=== PATIENT | female | born 1985 | race Caucasian/White ===

== ENCOUNTER 2020-03-22 10:46 | Inpatient (IN) | payer BC ==
[~2020-03-22] VITALS: Ht 175.3 cm; Wt 97.9 kg
[2020-03-22 11:25] VITALS: BP 132/85; PULSE 88
[2020-03-22 11:26] LABS: HEMOGLOBIN 15.6 g/dl (12.5-16.0); MEAN CELL VOLUME 88 fl (80.0-100.0); MEAN CORPUSCULAR HEMOGLOBIN 29 pg (27.0-31.0); MEAN CORPUSCULAR HGB CONC 33 g/dl (33.0-37.0); MEAN PLATELET VOLUME 8.7 fl (7.4-10.4); PLATELET COUNT 395 K/mm3 (130-400); RED BLOOD COUNT 5.37 M/mm3 (4.10-5.30); REDCELL DISTRIBUTION WIDTH-CV 13.4 % (11.5-14.5)
[2020-03-22 11:35] LABS: ALBUMIN 4.3 gm/dL (3.5-5.0); BILIRUBIN,TOTAL 0.8 mg/dL (0.0-1.0); C-REACTIVE PROTEIN 3.3 mg/dL (0.0-0.9); CALCIUM 8.7 mg/dL (8.4-10.2); CREATININE, serum 0.67 (0.52-1.25); POTASSIUM 3.6 mmol/L (3.4-5.0); TOTAL PROTEIN 8.2 gm/dL (6.4-8.2)
[2020-03-22 11:46] LABS: BAND 17 % (0-10); EOSINOPHIL 1 % (0-4); LYMPHOCYTE 7 % (20.0-51.0); NEUTROPHILS 65 % (42.0-75.2); PLATELET ESTIMATE NORMAL (NORMAL)
[2020-03-22 12:59] LABS: COLLECTION METHOD CLEAN CATCH
[2020-03-22 13:09] LABS: MUCOUS Present /lpf; PH 6 (5-8); SQUAMOUS EPITHELIAL 0-2 /hpf; URINE APPEARANCE Clear; URINE BACTERIA None Seen /hpf; URINE BILIRUBIN Negative (NEGATIVE); URINE BLOOD 1+ (NEGATIVE); URINE COLOR Yellow; URINE GLUCOSE Negative (NEGATIVE); URINE KETONE 1+ (NEGATIVE); URINE LEUKOCYTE ESTERASE Negative (NEGATIVE); URINE NITRATE Negative (NEGATIVE); URINE PROTEIN(semi-quant) Negative (NEGATIVE); URINE RBC 0-2 /hpf; URINE UROBILINOGEN Negative (NEGATIVE)
[2020-03-22 16:01] LABS: CLOSTRIDIUM DIFF A/B NEG; CLOSTRIDIUM DIFF A/B INTERP No C.diff present
[2020-03-22 16:31] VITALS: BP 140/83; PULSE 88; TEMP 98.9
[2020-03-22 16:33] VITALS: BP 141/81; PULSE 87; TEMP 98.9
[2020-03-22 19:55] VITALS: BP 131/73; PULSE 91; TEMP 98.4
[2020-03-22 23:59] VITALS: BP 135/77; PULSE 86; TEMP 98.4
[2020-03-23 04:00] VITALS: BP 127/73; PULSE 93; TEMP 98.7
[2020-03-23 07:25] VITALS: BP 134/75; PULSE 90; TEMP 98.6
[2020-03-23 07:54] LABS: HEMATOCRIT 40.7 % (37.0-47.0); MEAN CELL VOLUME 89 fl (80.0-100.0); MEAN CORPUSCULAR HEMOGLOBIN 30 pg (27.0-31.0); MEAN CORPUSCULAR HGB CONC 33 g/dl (33.0-37.0); PLATELET COUNT 318 K/mm3 (130-400); RED BLOOD COUNT 4.56 M/mm3 (4.10-5.30); REDCELL DISTRIBUTION WIDTH-CV 13.2 % (11.5-14.5)
[2020-03-23 08:03] LABS: CALCIUM 7.9 mg/dL (8.4-10.2); CREATININE, serum 0.59 (0.52-1.25); HEMOGLOBIN 13.6 g/dl (12.5-16.0); POTASSIUM 3.5 mmol/L (3.4-5.0)
[2020-03-23 08:51] LABS: BAND 18 % (0-10); LYMPHOCYTE 12 % (20.0-51.0); NEUTROPHILS 63 % (42.0-75.2); PLATELET ESTIMATE NORMAL (NORMAL)
[2020-03-23 11:42] VITALS: BP 130/76; PULSE 94; TEMP 98.3
[2020-03-23 16:47] VITALS: BP 132/78; PULSE 93; TEMP 98.5
[2020-03-23 19:35] VITALS: BP 140/77; PULSE 96; TEMP 98.6
[2020-03-24] VITALS (7 sets, daily range): BP systolic 116–137; BP diastolic 68–80; PULSE 86–98; TEMP 97.6–98.5
[2020-03-24 08:07] LABS: HEMATOCRIT 40.2 % (37.0-47.0); HEMOGLOBIN 13.4 g/dl (12.5-16.0); MEAN CELL VOLUME 89 fl (80.0-100.0); MEAN CORPUSCULAR HEMOGLOBIN 30 pg (27.0-31.0); MEAN CORPUSCULAR HGB CONC 33 g/dl (33.0-37.0); MEAN PLATELET VOLUME 9.2 fl (7.4-10.4); PLATELET COUNT 315 K/mm3 (130-400); RED BLOOD COUNT 4.52 M/mm3 (4.10-5.30); REDCELL DISTRIBUTION WIDTH-CV 13.2 % (11.5-14.5)
[2020-03-24 08:21] LABS: CALCIUM 8.2 mg/dL (8.4-10.2); CREATININE, serum 0.49 (0.52-1.25); POTASSIUM 3.2 mmol/L (3.4-5.0)
[2020-03-24 08:45] LABS: BAND 1 % (0-10); LYMPHOCYTE 17 % (20.0-51.0); NEUTROPHILS 74 % (42.0-75.2)
[2020-03-24 08:46] LABS: PLATELET ESTIMATE NORMAL (NORMAL)
[2020-03-25 03:11] VITALS: BP 115/70; PULSE 83; TEMP 98.3
[2020-03-25 07:58] VITALS: BP 124/62; PULSE 72; TEMP 98.1
[2020-03-25 08:21] LABS: HEMATOCRIT 39.7 % (37.0-47.0); HEMOGLOBIN 13.2 g/dl (12.5-16.0); MEAN CELL VOLUME 89 fl (80.0-100.0); MEAN CORPUSCULAR HEMOGLOBIN 30 pg (27.0-31.0); MEAN CORPUSCULAR HGB CONC 33 g/dl (33.0-37.0); MEAN PLATELET VOLUME 9.1 fl (7.4-10.4); PLATELET COUNT 379 K/mm3 (130-400); RED BLOOD COUNT 4.46 M/mm3 (4.10-5.30); REDCELL DISTRIBUTION WIDTH-CV 13.1 % (11.5-14.5)
[2020-03-25] MEDS ORDERED: NORCO 325 MG-51 TAB PO (08:48)
[2020-03-25 08:55] LABS: BAND 11 % (0-10); LYMPHOCYTE 18 % (20.0-51.0); NEUTROPHILS 65 % (42.0-75.2)
[2020-03-25 08:56] LABS: PLATELET ESTIMATE NORMAL (NORMAL)
[2020-03-25 08:59] LABS: CALCIUM 8.4 mg/dL (8.4-10.2); CREATININE, serum 0.53 (0.52-1.25); POTASSIUM 3.4 mmol/L (3.4-5.0)
== END 2020-03-25 11:40 | disposition home or self-care (01) | DRG 872 ==
LOC: COL.ER 10:46 → MEDICAL 14:01
PROVIDERS: Family Medicine; Internal Medicine; Physician Assistant; ADMIT Hospitalist
DX: A41.9 Sepsis, unspecified organism (principal); K92.1 Melena; A04.4 Other intestinal Escherichia coli infections; E87.6 Hypokalemia
CPT/HCPCS: 99222-AI; 99231-AI; 99239; C9113; J0696; J2270; J2405; J7030; J7120; Q9967